=== PATIENT | female | born 1995 | race Caucasian/White ===

== ENCOUNTER 2016-06-01 03:07 | Emergency (ER) | payer OTHER ==
[~2016-06-01] VITALS: Ht 170.2 cm; Wt 56.8 kg
[2016-06-01 03:15] VITALS: BP 136/92; PULSE 106; RESP 18; O2SAT 100
--- NOTE | 2016-06-01 03:33 | ED.REPORT ---
[facility] Illness Date of Service Jun 01, 2016 ED Provider: Cristofer Luis MD 21 year old female with a history of heroin abuse presents to the ER accompanied by her boyfriend with cough and nasal congestion onset 05/14/16. Associated symptoms include sore throat, rhinorrhea, and intermittent hot flashes. She states that she got out of shelter on 05/13/16 and attended a [employer] with ill family members. Patient denies fever, and any illicit drug abuse since her release. Nursing Notes Stated Complaint: FLU SYMPTOMS Chief Complaint: FLU/Cold Symptoms Nursing Notes Reviewed: Yes Allergies: Coded Allergies: ibuprofen (Verified Allergy, Severe, swelling and hives, 12/26/15) Scheduled Buprenorphine HCl/Naloxone HCl (Suboxone 8 mg-2 mg Sl Film) 1 Each Film 1 EACH SL BID General Time Seen by Provider: 03:32 Chief Complaint Cough, Nasal congestion Hx Obtained From: Patient Arrived By: Walk-in Onset Occurred: More than a week ago... (17 days) Symptom Duration: Since onset Associated with: Reports: Rhinorrhea, Denies: Fever Pertinent Negative: Pt denies other symptoms Past Medical History Past Surgical History None reported Smoking History Current Every Day Smoker Social History Drug Use: IV drugs (Heroin), THC, Other Other Social History: Good social support Ambulatory Status Independent Review of Systems Constitutional: Denies: Chills, Fever Ears / Nose / Throat: Reports: Nasal congestion, Sinus problem, Sore throat Respiratory: Reports: Non-productive cough GI: Denies: Abdominal pain, Diarrhea, Nausea, Vomiting Musculoskeletal: Reports: Myalgia Complete sys rev & neg: except as marked. Allergy / Immune: Reports: Rhinorrhea Physical Exam Initial Vital Signs Vital Signs (First) Date Time Temp Pulse Resp B/P Pulse Ox O2 Delivery O2 Flow Rate FiO2 06/01/16 03:15 36.3 106 18 136/92 100 Room Air Initial VS: Reviewed, Vital signs abnormal Head / Eyes: Atraumatic, Normocephalic Abdomen / GI: Soft, Non-tender, No guarding, No rebound, No distention Psychiatric: Mood/affect normal, Behavior normal, Normal thought content General/Constitutional: Awake, Alert, Well developed, Well nourished Neck: Supple, No meningismus, Full range of motion, No adenopathy, No swelling , Non-tender, No masses Respiratory / Chest: Breath sounds NL, Breath sounds = bilat, No respiratory distress, No rales, No rhonchi, No wheezing, No retractions Cardiovascular: Regular rhythm, Heart sounds NL, No murmurs, Peripheral circulation NL Heart Rate / Rhythm: Positive: Tachycardia Skin: Color NL, No rash, Warm, Dry, Turgor NL Neurologic: Oriented X3, Speech NL, No motor deficits, No sensory deficits Upper Extremity / MS: Full range of motion, Neurologic intact, Vascular intact Track ortiz in the left antecubital. Interpretation & Diagnostics Lab Results Interpretation Test 06/01/16 03:32 Hold Urine Received (Received) X-Ray Chest Interpretation Chest Xray Interpretation: Normal. View: AP & lat Interpretation / Wet Read by: Wet read ED physician Re-Evaluation & MDM Med Decision/Clinical Course The patient initially stated that she has not used any opiates or methamphetamine since being released from shelter 3 weeks ago. However her drug screen was positive. She then admitted that she was taking opiate pills and smoking methamphetamine. Her lung congestion may indeed be due to the smoking. Chest x-ray is negative and I see no evidence of a bacterial illness. We had a long discussion about opiate use and that she will be discharged with Suboxone bridging prescription to follow up at [facility] or [facility]. Re-Evaluation/Progress : Time of Eval: 05:32 Re-Evaluation/Progress Note: Patient now admits to using pills and methamphetamine, and is requesting Suboxone treatment. I had a long discussion with her about risks and benefits of Suboxone. Counseled Regarding: Diagnosis, Lab results, Need for follow-up, When/why to return to ED Patient Discharge & Departure Impression: Primary Impression: Upper respiratory infection URI type: unspecified viral URI Qualified Code: J06.9 - Acute upper respiratory infection, unspecified Additional Impressions: Opioid dependence Substance use status: uncomplicated Qualified Code: F11.20 - Opioid dependence, uncomplicated Methamphetamine abuse Disposition: Home Discharge Condition All VS Reviewed: Yes Condition: Stable Patient Instructions: Buprenorphine/Naloxone (By mouth), Upper Respiratory Infection (ED) Additional Instructions: Suboxone 8/2 film, 1 film dissolved orally twice daily, #28 prescription written. Do not use until you are in moderately severe withdrawal, or 24 hours after your last opiate use. Contact [facility] or [facility] for further Suboxone management. No evidence of bacterial infection, so antibiotics will not be helpful. Your test is negative. If you have continued concerns about , recommend recheck in 2 weeks. Suboxone is not a problem for . Referrals: NOPCP (PCP) Scribe Attestation Portions of this note were transcribed by Jerod Cleaning. I, Dr. Luis, personally performed the history, physical exam and medical decision-making; I reviewed and confirmed the accuracy of the information in the transcribed note. Signed by: Fern Mayorga. 06/01/2016, 05:40 Cristofer Luis MD Jun 01, 2016 03:33 JREOD CLEANING Jun 01, 2016 03:55
[2016-06-01] MEDS ORDERED: LORazepam 1 mg Tablet PO ONE (04:00)
[2016-06-01] MEDS ORDERED: BUPR1FIL3 SL (05:40)
[2016-06-01 05:51] VITALS: BP 113/80; PULSE 88; RESP 18; O2SAT 98
--- NOTE | 2016-06-01 08:01 | DRSVH ---
PROCEDURE: X-RAY CHEST, TWO VIEWS ([id number]) INDICATIONS: cough, fever, sputum for 2 weeks TECHNIQUE: 2 views of the chest were acquired. COMPARISON: None. FINDINGS: Surgical changes and devices: None. Lungs and pleura: No pleural effusions or pneumothorax. Small, subtle opacity is noted in the lingul a of the left upper lobe/left lung base suspicious for pneumonia. Mediastinum: Mediastinal contours are normal. Heart size is normal. Bones and chest wall: No suspicious bony abnormalities. Soft tissues appear unremarkable. IMPRESSION: Small, subtle left basilar opacity suspicious for pneumonia. Please correlate with clinic al laboratory data. Dictated by: Stella Henderson MD, PhD on 06/01/2016 at 7:58 Approved by: Stella Henderson MD, PhD on 06/01/2016 at 7:58
== END 2016-06-01 05:53 | disposition home or self-care (01) ==
LOC: SED 03:07
DX: J06.9 Acute upper respiratory infection, unspecified (principal); F11.20 Opioid dependence, uncomplicated; F15.10 Other stimulant abuse, uncomplicated; F17.200 Nicotine dependence, unspecified, uncomplicated; Z88.8 Allergy status to other drugs, medicaments and biological substances

== ENCOUNTER 2016-10-23 15:28 | Emergency (ER) | payer OTHER ==
[~2016-10-23] VITALS: Ht 172.7 cm; Wt 61.4 kg
[~2016-10-23 15:28] MED LIST: BUPR1FIL3 SL
[2016-10-23 15:30] VITALS: BP 107/68; PULSE 95; RESP 16; O2SAT 100
--- NOTE | 2016-10-23 15:49 | ED.REPORT ---
HPI-Extremity Problem Lower Date of Service Oct 23, 2016 ED Provider: History of Present Illness: 21-year-old female here for left ankle pain, sent from for gross deformity. Jumped off an 8-10 foot deck and landed on her left ankle at 2 PM today. Pain and lateral ankle. Numbness in toes. Cannot wiggle toes. No previous injuries of ankle. Last ate food 8p.m. last night. Had a few drinks of water today. LMP 10/14/2016. No other injuries from this fall. Patient was splinted at urgent care. Nursing Notes Stated Complaint: LEFT ANKLE PAIN Chief Complaint: Extremity Trauma Nursing Notes Reviewed: Yes Allergies: Coded Allergies: acetaminophen (Verified Adverse Reaction, Unknown, Hives, 10/23/16) Scheduled Buprenorphine HCl/Naloxone HCl (Suboxone 8 mg-2 mg Sl Film) 1 Each Film 1 EACH SL BID General Time Seen by MD: 15:37 Chief Complaint Ankle injury left Hx Obtained From: Patient Arrived By: Walk-in Onset Occurred: 1 - 4 hours ago Symptom Duration: Since onset Caused by: Fall from height... (6-10 feet) Context: Occurred at: Home injury Location: : Ankle left Quality: Painful Severity: Current: Pain level 7 out of 10 Severity: Maximum: Pain level 10 out of 10 Associated with: Reports: Unable to walk Pertinent Negative: Pt denies other symptoms Exacerbated by: Range of motion, Movement Relieved by: Rest Immunizations: Tetanus up to date Similar Sx Previous: No Past Medical History Past Medical History Notes: denies Past Surgical History None reported Smoking History Current Every Day Smoker Social History Drug Use: IV drugs, THC, Other Other Social History: Good social support Ambulatory Status Independent Review of Systems Basic Review of Systems Eyes: Vision NL, No discharge ENT: Hearing NL, No pain, No nasal congestion, No pharyngeal pain Respiratory: No shortness of breath, No cough, No wheeze Cardiovascular: No chest pain, No dyspnea on exertion, No orthopnea, No parox noct dyspnea, No palpitations Allergy / Immune: No allergy Psychiatric: Normal thought content Constitutional: Denies: Fatigue, Fever Musculoskeletal: Reports: Extremity pain, Extremity swelling Complete sys rev & neg: except as marked. Physical Exam Initial Vital Signs Vital Signs (First) Date Time Temp Pulse Resp B/P Pulse Ox O2 Delivery O2 Flow Rate FiO2 10/23/16 15:30 36.6 95 16 107/68 100 Room Air Initial VS: Reviewed, Vital signs normal General/Constitutional: Well-developed, Well-nourished Head / Eyes: Atraumatic, Normocephalic, PERRL ENT: Mucous membranes moist, Conjunctiva normal, No scleral icterus Neck: Supple, Non-tender, Full range of motion Respiratory: Breath sounds normal, Clear to auscultation, No respiratory distress Cardiovascular: Regular rate & rhythm, Heart sounds normal, Intact distal pulses Abdomen / GI: Soft, Non-tender, No guarding, No rebound, No distention Upper Extremities: Vascular intact, Neuro intact, No swelling, No tenderness Skin: Warm, Dry, No cyanosis Neurologic: Alert, Oriented, Nonfocal Psychiatric: Mood/affect normal, Behavior normal, Normal thought content Lower Extremity / Pelvis / MS: Atraumatic, Inspection NL, Full range of motion , No deformity, Neurologic intact, Vascular intact, No edema Left Ankle: Positive: ROM reduced, Swelling present... (Moderate), Tender lateral malleolus, Tenderness present... (Moderate), Negative: Ecchymosis present, Erythema present, Warmth present pt states numbness wtih palpation of toes. pedal pulse present. wiggles first digit only Interpretation & Diagnostics Interpretation & Diagnostics: LEFT ANKLE, MINIMUM THREE VIEWS ([id number]) INDICATIONS: pain/deformity TECHNIQUE: 3 views of the ankle were acquired. COMPARISON: None. FINDINGS: Bones: No fractures or dislocations. Ankle mortise is normally aligned. No suspicious bony lesions. Soft tissues: No tibiotalar joint effusion. Achilles tendon appears normal. IMPRESSION: Fine bone detail is partially secured by overlying splint material. No fracture or traumatic subluxation is found. Re-Eval/Medical Decision Med Decision/Clinical Course Upon reevaluation patient does have some movement of ankle and wiggles toes. These actions are limited by pain. Pedal pulses present. CMS intact. Most tenderness is present anterior ankle and over the lateral malleolus. No obvious deformities noted. Discharge & Departure Shift Change Sign-Out Imaging Studies: Imaging discussed Impression: Primary Impression: Ankle sprain Encounter type: initial encounter Involved ligament of ankle: unspecified ligament Laterality: left Qualified Code: S93.402A - Sprain of unspecified ligament of left ankle, initial encounter Disposition: Home Patient Instructions: Ankle Sprain (GEN) Additional Instructions: Follow-up this week with PCP. Return immediately if severe pain, or worsening symptoms at all. Take ibuprofen every 8 hours as needed for pain. No or limited weightbearing as tolerated until the follow-up. Use crutches. If severe pain persists in 7-10 days You will need a repeat x-ray. You were given an orthopedic referral. Use this if your pain does not improve in 7 days or things worsen. Referrals: NOPCP (PCP) [facility] EDSupervising Provider for APC: Seng Rivera MD, Linnea K ARNP Oct 23, 2016 15:49
--- NOTE | 2016-10-23 16:16 | DRSVH ---
PROCEDURE: X-RAY LEFT ANKLE, MINIMUM THREE VIEWS ([id number]) INDICATIONS: pain/deformity TECHNIQUE: 3 views of the ankle were acquired. COMPARISON: None. FINDINGS: Bones: No fractures or dislocations. Ankle mortise is normally aligned. No suspicious bony lesions . Soft tissues: No tibiotalar joint effusion. Achilles tendon appears normal. IMPRESSION: Fine bone detail is partially secured by overlying splint material. No fracture or trau matic subluxation is found. Dictated by: Bruce Pickering M.D. on 10/23/2016 at 16:13 Approved by: Bruce Pickering M.D. on 10/23/2016 at 16:15
== END 2016-10-23 17:11 | disposition home or self-care (01) ==
LOC: SED 15:28
DX: S93.402A Sprain of unspecified ligament of left ankle, initial encounter (principal); W17.89XA Other fall from one level to another, initial encounter; Y93.89 Activity, other specified; Y92.009 Unspecified place in unspecified non-institutional (private) residence as the place of occurrence of the external cause; Y99.8 Other external cause status; R20.0 Anesthesia of skin; F17.200 Nicotine dependence, unspecified, uncomplicated; Z88.8 Allergy status to other drugs, medicaments and biological substances
CPT/HCPCS: 73610; 96372; 99284; G0463; J1885